=== PATIENT | female | born 1955 | race African-American/Black ===

== ENCOUNTER 2018-10-07 06:56 | Emergency (ER) | payer MEDICAID, OTHER ==
[~2018-10-07] VITALS: Ht 149.9 cm; Wt 79.0 kg
[2018-10-07] MEDS ORDERED: IPRATROPIUM BROMIDE (0.02%) 0.5MG/2.5ML NEB HHN STA (08:40)
[2018-10-07] MEDS ORDERED: ALBUTEROL (0.083%) 2.5MG/3ML NEB HHN STA (08:40)
[2018-10-07] MEDS ORDERED: IBUPROFEN 600MG TABLET PO STA (08:40)
[2018-10-07 10:45] VITALS: BP 110/69
== END 2018-10-07 10:47 | disposition home or self-care (01) ==
LOC: ER 06:56
DX: M17.12 Unilateral primary osteoarthritis, left knee (principal); M25.511 Pain in right shoulder; J45.909 Unspecified asthma, uncomplicated
CPT/HCPCS: 73562; 94640; 99283; J7611

== ENCOUNTER 2019-03-10 15:06 | Emergency (ER) | payer MEDICAID ==
[~2019-03-10] VITALS: Ht 149.9 cm; Wt 79.0 kg
[2019-03-10 17:15] VITALS: BP 118/78
[2019-03-10] MEDS ORDERED: IBUPROFEN 600MG TABLET PO ONE (17:15)
== END 2019-03-10 17:30 | disposition home or self-care (01) ==
LOC: ER 15:06
DX: M17.12 Unilateral primary osteoarthritis, left knee (principal)
CPT/HCPCS: 99282

== ENCOUNTER 2019-04-27 07:57 | Emergency (ER) | payer MEDICAID ==
[~2019-04-27] VITALS: Ht 152.4 cm; Wt 78.0 kg
[2019-04-27] MEDS ORDERED: IBUPROFEN 600MG TABLET PO STA (08:34)
[2019-04-27 08:46] VITALS: BP 126/56
== END 2019-04-27 10:14 | disposition home or self-care (01) ==
LOC: ER 07:57
DX: M17.12 Unilateral primary osteoarthritis, left knee (principal); M25.562 Pain in left knee; Z88.6 Allergy status to analgesic agent
CPT/HCPCS: 99282

== ENCOUNTER 2021-12-19 07:46 | Emergency (ER) | payer MEDICAID ==
[~2021-12-19] VITALS: Ht 149.9 cm; Wt 82.0 kg
[2021-12-19 07:53] VITALS: BP 159/79
[2021-12-19] MEDS ORDERED: ACETAMINOPHEN 325MG TABLET PO ONE (08:15)
[2021-12-19] MEDS ORDERED: NAPR-677 PO (09:23)
== END 2021-12-19 11:49 | disposition home or self-care (01) ==
LOC: ER 08:26
DX: M17.12 Unilateral primary osteoarthritis, left knee (principal); I10 Essential (primary) hypertension; E03.9 Hypothyroidism, unspecified; J45.909 Unspecified asthma, uncomplicated
CPT/HCPCS: 73562; 99283

== ENCOUNTER 2024-07-08 09:59 | Emergency (ER) | payer MEDICARE, MEDICAID ==
[~2024-07-08] VITALS: Ht 165.1 cm; Wt 95.0 kg
[~2024-07-08 09:59] MED LIST: NAPR-677 PO
[2024-07-08 10:25] VITALS: O2SAT 95
[2024-07-08] MEDS: KETOROLAC 15MG/ML VIAL IM ONE (12:09)
[2024-07-08] MEDS: CYCLOBENZAPRINE 10MG TABLET PO ONE (12:12)
[2024-07-08] MEDS ORDERED: NAPR-681 MT (13:46)
[2024-07-08 13:57] VITALS: BP 122/67; PULSE 70; RESP 18; TEMP 36.89184; O2SAT 95
== END 2024-07-08 14:34 | disposition home or self-care (01) ==
LOC: ER 09:59
DX: M79.18 Myalgia, other site (principal); G40.909 Epilepsy, unspecified, not intractable, without status epilepticus; I10 Essential (primary) hypertension; J45.909 Unspecified asthma, uncomplicated; M17.12 Unilateral primary osteoarthritis, left knee; Z79.1 Long term (current) use of non-steroidal anti-inflammatories (NSAID); Z98.890 Other specified postprocedural states
CPT/HCPCS: 99283; 73030; 73060; 73090; 73562; 93005; 96372; J1885

== ENCOUNTER 2024-07-21 07:28 | Emergency (ER) | payer MEDICARE, MEDICAID ==
[~2024-07-21] VITALS: Ht 149.9 cm; Wt 88.0 kg
[~2024-07-21 07:28] MED LIST changes: +NAPR-681 MT
[2024-07-21 07:34] VITALS: O2SAT 96
[2024-07-21] MEDS ORDERED: BACITRACIN ZINC OINT UDPKT TOP ONE ×2 (08:45)
[2024-07-21] MEDS ORDERED: LIDOCAINE HCL/PF 1% 10 MG/ML 5ML VIAL INFIL ONE (08:45)
[2024-07-21] MEDS ORDERED: SULF1TAB48 MT (09:39)
[2024-07-21 10:08] VITALS: BP 164/63; PULSE 64; RESP 18; TEMP 36.78072; O2SAT 100
== END 2024-07-21 10:10 | disposition home or self-care (01) ==
LOC: ER 07:28
DX: L02.212 Cutaneous abscess of back [any part, except buttock and flank] (principal); I10 Essential (primary) hypertension; J45.909 Unspecified asthma, uncomplicated; Z88.6 Allergy status to analgesic agent; Z86.59 Personal history of other mental and behavioral disorders; Z98.890 Other specified postprocedural states
CPT/HCPCS: 99283; 10060; J3490; J2003

== ENCOUNTER 2024-07-24 07:28 | Emergency (ER) | payer MEDICARE, OTHER ==
[~2024-07-24] VITALS: Ht 149.9 cm; Wt 88.0 kg
[~2024-07-24 07:28] MED LIST changes: +SULF1TAB48 MT
[2024-07-24 07:36] VITALS: BP 146/55; TEMP 98.3; O2SAT 99
[2024-07-24 08:08] VITALS: PULSE 89; RESP 17; O2SAT 99
== END 2024-07-24 08:59 | disposition home or self-care (01) ==
LOC: ER 07:28
DX: L02.212 Cutaneous abscess of back [any part, except buttock and flank] (principal); I10 Essential (primary) hypertension; J45.909 Unspecified asthma, uncomplicated; Z98.890 Other specified postprocedural states
CPT/HCPCS: 99281